=== PATIENT | female | born 1995 | race Caucasian/White ===

== ENCOUNTER 2017-12-14 22:28 | Emergency (ER) | payer OTHER ==
[2017-12-14 22:32] VITALS: BP 141/76; PULSE 78; TEMP 98; BMI 28.3
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
[2017-12-14 23:55] LABS: URINE APPEARANCE CLOUDY; URINE BILIRUBIN NEGATIVE (<2.0 mg/dL); URINE COLOR LTYELLOW; URINE GLUCOSE (UA) NEGATIVE (NEGATIVE); URINE KETONE NEGATIVE (NEGATIVE); URINE NITRITE NEGATIVE (NEGATIVE); URINE PROTEIN NEGATIVE (NEGATIVE); URINE UROBILINOGEN NEGATIVE mg/dL (0.2-1.0)
[2017-12-14 23:57] LABS: HCG,QUALITATIVE URINE Negative
[2017-12-14 23:59] LABS: URINE LEUK ESTERASE 3+ (NEGATIVE)
[2017-12-15] LABS: EPI CELLS MANY /HPF (FEW); URINE MUCUS RARE
[2017-12-15] MEDS ORDERED: IBUPROFEN 600 MG TABLET (FP) PO ONE ×2 (00:42→00:50)
[2017-12-15] MEDS ORDERED: BACITRACIN 15 GM TUBE TOPICAL OINTMENT TP ONE (01:00)
[2017-12-15] MEDS ORDERED: BACITRACIN 0.9 GM PACKET ONE (01:07)
--- NOTE | 2017-12-16 14:33 | EKG ---
Test Reason : Blood Pressure : / mmHG Vent. Rate : 076 BPM Atrial Rate : 076 BPM P-R Int : 144 ms QRS Dur : 086 ms QT Int : 360 ms P-R-T Axes : 061 075 051 degrees QTc Int : 405 ms NORMAL SINUS RHYTHM WITH SINUS ARRHYTHMIA NORMAL ECG NO PREVIOUS ECGS AVAILABLE Confirmed by GAURI STORM, [facility] ([id number]) on 12/16/2017 2:32:46 PM Referred By: Confirmed By:UMM ASTORGA MD
== END 2017-12-15 01:21 | disposition home or self-care (01) ==
LOC: JER 22:28 → JERFT 22:28 → JER 12-15 01:21
DX: R07.9 Chest pain, unspecified (principal); S00.81XA Abrasion of other part of head, initial encounter; M79.632 Pain in left forearm; M25.532 Pain in left wrist; V47.5XXA Car driver injured in collision with fixed or stationary object in traffic accident, initial encounter; Y92.488 Other paved roadways as the place of occurrence of the external cause; Y93.89 Activity, other specified; Y99.8 Other external cause status; N39.0 Urinary tract infection, site not specified
CPT/HCPCS: 71111-TC-FY; 73090-TC-LT-FY; 73110-TC-LR-FY; 73130-TC-LR-FY; 81003; 81015; 84703; 93005; 93010; 99282-25